=== PATIENT | female | born 1955 | race Caucasian/White ===

== ENCOUNTER 2018-12-17 17:03 | Emergency (ER) | payer MEDICARE, BC ==
[~2018-12-17] VITALS: Ht 162.6 cm; Wt 70.3 kg
[2018-12-17 17:11] VITALS: BP 120/68
--- NOTE | 2018-12-17 17:11 | NUR ---
PT [facility] [address] [facility] "Tripped and fell hurt left hand and knee" NO LOC, PT IS [id number], NOT IN RESPIRATORY DISTRESS, HOOKED TO MONITOR, KEPT RESTED AND COMFORTABLE, WILL CONTINUE TO MONITOR.
--- NOTE | 2018-12-17 17:12 | NUR ---
SEEN AND EXAMINED BY .
[2018-12-17] MEDS ORDERED: IBUPROFEN 600 MG TABLET PO ONE ×2 (17:15→17:30)
--- NOTE | 2018-12-17 17:22 | NUR ---
WOUND CLEANING DONE BY [employer].
--- NOTE | 2018-12-17 18:21 | NUR ---
Patient discharged to home in stable condition. Written and verbal after care instructions given. Patient verbalizes understanding of instruction.
== END 2018-12-17 18:22 | disposition home or self-care (01) ==
LOC: ER 17:07
DX: S60.222A Contusion of left hand, initial encounter (principal); S80.212A Abrasion, left knee, initial encounter; I10 Essential (primary) hypertension; E78.00 Pure hypercholesterolemia, unspecified; W01.0XXA Fall on same level from slipping, tripping and stumbling without subsequent striking against object, initial encounter; Y93.01 Activity, walking, marching and hiking; Y92.89 Other specified places as the place of occurrence of the external cause; Y99.8 Other external cause status
CPT/HCPCS: 29125; 73130; 73564; 99283; L3763